=== PATIENT | male | born 1965 | race Hispanic/Latino ===

== ENCOUNTER 2022-07-01 09:52 | Outpatient (CLI) | payer OTHER ==
[2022-07-01] MEDS ORDERED: Magnevist 469MG/ML 20 ML VIAL ONE (14:19)
== END 2022-07-01 09:53 | disposition home or self-care (01) ==
LOC: CSHMRI 09:52
PROVIDERS: ATTEND Radiology Radiation Oncology
DX: C61 Malignant neoplasm of prostate (principal)
CPT/HCPCS: 72197; A9579